=== PATIENT | female | born 1960 | race Caucasian/White ===

== ENCOUNTER 2024-03-06 09:41 | Emergency (ER) | payer BC, SELFPAY ==
--- NOTE | 2024-03-06 09:44 | ED.GENMED ---
History of Present Illness
General
Chief Complaint: Anxiety
Source: patient
Exam Limitations: none
Time Seen by Provider: 03/06/24 09:43
History of Present Illness
History of Present Illness:
See MDM
Past History
Past History
ED Past Medical History: None
ED Past Surgical History: None
Social History
Tobacco: Non-smoker
Alcohol: None
Phy Exam
Physical Exam
Physical Exam:
See MDM
Course
Orders/Labs/Results
Orders:
Orders
03/06/24 09:44
Electrocardiogram (*1) Urgent
Reason for Study: Vertigo / Dizzy
EKG- Treatment ONCE
03/06/24 09:55
Crisis Consult Urgent
Reason for Consult: severe anxiety
03/06/24 10:15
0.9% Sodium Chloride 1000 ml [Nss] 1,000 ml IV BOLUS
03/06/24 10:36
Complete Blood Count/With Diff Urgent
Comprehensive Metabolic Panel Urgent
TSH Reflex To Free T4 Urgent
Abnormal Lab Results
03/06/24
10:36
WBC 11.5 H 10^3/uL
(4.8-10.8)
RBC 4.16 L 10^6/uL
(4.20-5.40)
MCH 32.9 H pg
(27.0-31.0)
Absolute Neuts (auto) 7.4 H 10^3/uL
(1.4-6.5)
Chloride 110 H mmol/L
(98-107)
Carbon Dioxide 21 L mmol/L
(22-30)
ALT 39 H U/L
(0-35)
03/06/24 10:36
03/06/24 10:36
Vital Signs
Initial and Last Documented VS:
Initial Vital Signs
BP
139/76
03/06/24 09:45
Last Documented Vital Signs
Temp Pulse Resp BP Pulse Ox
98.4 F 65 14 148/82 98
03/06/24 09:46 03/06/24 11:15 03/06/24 11:15 03/06/24 11:10 03/06/24 11:15
MDM/Problems Addressed
Differential Diagnosis Includes:
HPI and MDM Narrative:
64-year-old female presenting with resolving dizziness. Patient believes this is all stress related. She is dealing with the stress of her job and also with the stress of losing her home. Patient states she is getting tired of all of it and her
life is focused around going to work and then coming home and staying in bed all day.
On arrival to the emergency department, symptoms appear to be improving. She is clearly stressed and depressed.
I did offer antianxiolytics but patient declined because she has to be able to drive home
I asked whether or not she has had this conversation with her PCP. Patient failed Prozac in the past due to side effects. Her PCP ordered Lexapro but patient has not started that yet. She is trying to follow-up with therapy but she does not get
any callbacks.
She denies suicidal or homicidal thoughts. Will have crisis evaluate to help navigate therapy route
Screening EKG without ischemic changes. Will obtain basic blood work and check thyroid function. She denies suicidal or homicidal thoughts
Physical exam
General: Well appearing and non-toxic
HEENT: protecting airway
Neck: appears supple
CV: No evidence of cyanosis. Regular rate and rhythm. No murmur
Resp: No accessory muscle use
Abd: Non-distended
Extremities: No deformities
Neuro: alert
Psych: Depressed and anxious affect
Skin: Intact
Problems Addressed including Acute and Chronic Conditions affecting care:
1. Anxiety and depression
Acuity: acute
Prognosis: stable
Details: She does have follow-up with PCP who has placed her on Lexapro. We discussed take the medicine as prescribed. Will have crisis evaluate. Will obtain basic blood work to rule out metabolic causes
Updates
Blood work without clinical significance. Patient becoming focused on her abnormal blood pressure. We discussed the blood pressure is elevated likely because of her mental state. We discussed that she can start taking her as needed blood pressure
medicine daily instead. Discussed having this followed up by her PCP which she has an appointment on Monday
Differential Diagnosis (but not limited to): Anxiety, depression, hypothyroidism
Testing considered: Troponin
Drug therapy (if applicable): OTC meds, please see d/c instruction regarding Rx drugs
Amount and/or Complexity of Data Reviewed
Clinical info obtained from: Patient
External data reviewed: N/A
Labs I independently reviewed (but not limited to): TSH normal
Radiology: N/A
Pulse Ox: not hypoxic
EKG independently reviewed: Sinus rhythm, normal axis, no STEMI
Cafeteria Or Lunchroom Checker: Sinus rhythm
Critical Care: N/A
Risk of Complication:
Social Determinants of health: Good social support
Discussed with other providers: N/A
Escalation of Care includes Admit/Obs: After being observed in the Emergency Department, pt stable for discharge.
Occasional wrong word or 'sound a like' substitutions may have occurred due to the inherent limitations of voice recognition software. Read the chart carefully and recognize, using context, where substitutions have occurred.
*Critical Care Note
Total Time (30-74mins, 75-104mins- exclusive of procedures): Not Applicable
ED Attending Note
-
Portions of this chart may have been created with voice recognition software.� Occasional wrong word or��sound alike� substitutions may have occurred due to the inherent limitations of voice recognition software.
Discharge Plan
Departure
Patient Disposition: Home (Routine Discharge)
Date of Disposition: 03/06/24
Time of Disposition: 12:26
Patient with high blood pressure during this ER visit?: Yes
Discharge Problem:
Stress response
Instructions: Anxiety, Adult (DC), BLOOD PRESSURE
Referrals:
Dhiraj Wei, [Family Provider] -
Activity Restrictions/Additional Instructions:
Please return for any worsening symptoms.
You may return at any time if you have further concerns.
Please keep your primary care appointment on Monday. Please discuss your stress and your elevated blood pressure. It may be beneficial to take your blood pressure medicine daily until seeing your doctor.
Interventions
Interventions:
*General Assessment Last Done: 03/06/24 09:46
*Neglect/Abuse Screening Last Done: 03/06/24 09:46
ED- Fall Risk Assessment Last Done: 03/06/24 09:46
*ED COVID-19 Vaccine History Last Done: 03/06/24 09:46
ED-Psychological Assessment Last Done: 03/06/24 10:50
Discharge Date and Time
Print Language: VENEZUELAN
[2024-03-06 09:45] VITALS: BP 139/76
[2024-03-06 09:46] VITALS: BP 139/76
[2024-03-06] MEDS: NSS 1000 IV (10:47)
[2024-03-06 11:04] LABS: % Basophils 0.6 % (0-2); % Eosinophils 0.9 % (0-6); % Immature Granulocytes 0.3 % (0-0.5); % Lymphocytes 28.7 % (20.5-51.1); % Monocytes 5.2 % (1.7-9.3); % Neutrophils 64.3 % (42.2-75.2); Absolute Basophils 0.1 10^3/uL (0-0.2); Absolute Eosinophils 0.1 10^3/uL (0-0.7); Absolute Lymphocytes 3.3 10^3/uL (1.2-3.4); Absolute Monocytes 0.6 10^3/uL (0.1-0.6); Absolute Neutrophils 7.4 10^3/uL (1.4-6.5); Hematocrit 39.6 % (37.0-47.0); Hemoglobin 13.7 g/dL (12.0-16.0); Mean Corp Hgb Conc. 34.6 g/dL (33.0-37.0); Mean Corpuscular Hgb 32.9 pg (27.0-31.0); Mean Corpuscular Volume 95.2 fL (81.0-99.0); Mean Platelet Volume 10.4 fL (7.4-10.4); Nucleated Red Blood Cells % 0 %; Platelet Count 378 10^3/uL (130-400); Red Blood Cell Count 4.16 10^6/uL (4.20-5.40); Red Cell Dist. Width 13.4 % (11.5-14.5); White Blood Cell Count 11.5 10^3/uL (4.8-10.8)
[2024-03-06 11:08] LABS: ALT (SGPT) 39 U/L (0-35); AST (SGOT) 28 U/L (14-36); Albumin 4.4 g/dl (3.5-5.0); Alkaline Phosphatase 63 U/L (38-126); Blood Urea Nitrogen 15 mg/dl (7-17); Calcium 9.4 mg/dl (8.4-10.2); Carbon Dioxide 21 mmol/L (22-30); Chloride 110 mmol/L (98-107); Glucose 87 mg/dl (70-99); Potassium 4.7 mmol/L (3.5-5.1); Sodium 142 mmol/L (135-145); Total Bilirubin 0.5 mg/dl (0.2-1.3); Total Protein 6.9 g/dl (6.3-8.2); eGFR > 60.00
[2024-03-06 11:10] VITALS: BP 148/82
[2024-03-06 11:52] LABS: TSH Reflex To Free T4 0.48 uIU/ml (0.47-4.68)
[2024-03-06 12:00] VITALS: BP 147/108
== END 2024-03-06 12:40 | disposition home or self-care (01) ==
LOC: EMR 09:41
PROVIDERS: EMERGENCY PHYSICIAN Student in an Organized Health Care Education/Training Program; FAMILY PHYSICIAN Internal Medicine
DX: F43.9 Reaction to severe stress, unspecified (principal); F41.9 Anxiety disorder, unspecified
CPT/HCPCS: 99283; 96360; 80053; 84443; 85025; 93005